=== PATIENT | female | born 1935 | race Caucasian/White ===

== ENCOUNTER 2017-06-04 20:00 | Emergency (ER) | payer MEDICARE ==
[~2017-06-04] VITALS: Ht 170.2 cm; Wt 56.8 kg
[2017-06-04 20:07] VITALS: Ht 170.2 cm; Wt 56.8 kg
[2017-06-04] MEDS ORDERED: ASPI-664 PO (21:05)
[2017-06-04] MEDS ORDERED: ATOR20TA38 PO (21:05)
[2017-06-04] MEDS ORDERED: AMLO5TAB4 PO (21:05)
[2017-06-04] MEDS ORDERED: CALC-42 PO (21:07)
[2017-06-04] MEDS ORDERED: METH5TAB75 PO (21:08)
[2017-06-04] MEDS ORDERED: OMEP20CA16 PO (21:09)
[2017-06-04] MEDS ORDERED: CHOL200073 PO (21:10)
[2017-06-04] MEDS ORDERED: CARV3.1260 PO (21:10)
[2017-06-04] MEDS ORDERED: HIPR1 PO (21:11)
[2017-06-04] MEDS ORDERED: ASC500 PO (21:12)
[2017-06-04] MEDS ORDERED: ACET325T45 PO (21:13)
[2017-06-04] MEDS ORDERED: MAGN400O4 PO (21:14)
--- NOTE | 2017-06-04 21:23 | RADRPT ---
PROCEDURE: XR Hip. CLINICAL INDICATION: Right hip pain. TECHNIQUE: AP and frog lateral views of the right hip were performed. AP pelvis was obtained. COMPARISON: None. FINDINGS: Demineralization limits evaluation of fine osseous detail. No acute fracture or dislocation. Axial joint compartment narrowing in the left hip. The right hip is without significant degenerative leal ges. Enthesopathic changes are likely present at the bilateral greater trochanters. Degenerate court nges lower lumbar spine. Vascular calcifications. The soft tissues are otherwise unremarkable. IMPRESSION: Demineralization, without acute fracture. RPTAT: [facility] Physician Justin Date Time Electronically viewed and signed by Physician Justin on 06/04/2017 21:23 RS/
--- NOTE | 2017-06-04 21:27 | ERD ---
ER Documentation Chief Complaint Date/Time DATE: 06/04/17 TIME: 21:26 Chief Complaint ANKUR RATyler from [facility], ground level fall, c/o rt hip pain HPI Detailed history is unobtainable from patient secondary to her dementia. This is an 82-year-old female who presents to the emergency room for evaluation of a ground-level fall. The patient did state that she had right hip pain prior however she is denying any hip pain at this time. She denies any head or loss of consciousness. ROS All systems reviewed and are negative except as per history of present illness. Medications Home Meds Reported Medications Magnesium Hydroxide* (Milk Of Magnesia*) 400 Mg/5 Ml Oral.susp, 30 ML PO DAILY Y for CONSTIPATION, ML 06/04/17 Acetaminophen* (Acetaminophen*) 325 Mg Tablet, 650 MG PO Q6H Y for MILD PAIN LEVEL 1-3, #30 TAB 06/04/17 Ascorbic Acid (Vitamin C) 500 Mg Tab, 500 MG PO BID, TAB 06/04/17 Methenamine Hippurate* (Hiprex*) 1 Gm Tab, 1 GM PO BID, TAB 06/04/17 Carvedilol* (Carvedilol*) 3.125 Mg Tablet, 3.125 MG PO BID, #60 TAB 06/04/17 Cholecalciferol (Vitamin D3) (VITAMIN D-3) 2,000 Unit Capsule, 2000 UNIT PO DAILY, CAP 06/04/17 Omeprazole* (Omeprazole*) 20 Mg Capsule.dr, 20 MG PO DAILY, #30 CAP 06/04/17 Methimazole* (Tapazole*) 5 Mg Tablet, 5 MG PO DAILY, TAB 06/04/17 Calcium Carbonate-Vitamin D3 (Calcium 500 + Vit D 400 Tablet) 1 Each Tablet, 1 TAB PO DAILY, TAB 06/04/17 Atorvastatin Calcium* (Atorvastatin Calcium*) 20 Mg Tablet, 20 MG PO DAILY, #30 TAB 06/04/17 Aspirin* (Aspirin* EC) 81 Mg Tablet.dr, 81 MG PO DAILY, TAB 06/04/17 Amlodipine Besylate* (Norvasc*) 5 Mg Tablet, 5 MG PO DAILY, TAB 06/04/17 Allergies Allergies: Coded Allergies: Penicillins (Verified Allergy, Unknown, 06/04/17) ibuprofen (Verified Allergy, Unknown, 06/04/17) levofloxacin (Verified Allergy, Unknown, 06/04/17) PMhx/Soc Medical and Surgical Hx: pt denies Medical Hx, pt denies Surgical Hx Hx Alcohol Use: No Hx Substance Use: No Hx Tobacco Use: No Smoking Status: Never smoker Physical Exam Vitals Vital Signs Date Time Temp Pulse Resp B/P Pulse Ox O2 Delivery O2 Flow Rate FiO2 06/04/17 20:07 98.3 73 18 128/64 96 Physical Exam Const: Frail-appearing elderly female no acute distress Head: Atraumatic, no depressed skull fracture Eyes: Normal Conjunctiva ENT: Normal External Ears, Nose and Mouth. Neck: Full range of motion..~ No meningismus. Resp: Clear to auscultation bilaterally Cardio: Regular rate and rhythm, no murmurs Abd: Soft, non tender, non distended. Normal bowel sounds Skin: No petechiae or rashes Back: No midline or flank tenderness Ext: No cyanosis, or edema, no shortening of lower extremity Neur: Awake and alert Psych: Normal Mood and Affect Procedures/MDM X-ray Hip 2V Interpreted by me: Bones: [No fracture] Joints: [No dislocation] Foreign body: [None] This 82-year-old female presents to the emergency room for evaluation after ground-level fall. There was concerned because she was complaining of right hip pain. She had no pain on my examination. This patient did have an x-ray obtained of the hip does not show any acute fractures. The patient will be discharged back to her [facility] at this time Departure Diagnosis: Primary Impression: Hip pain Additional Impression: Fall from ground level Condition: Stable HEIDY DEAN DO Jun 04, 2017 21:27
[2017-06-04] MEDS ORDERED: ACET325T33 PO (21:32)
[2017-06-04] MEDS ORDERED: ACETAMINOPHEN 325 MG TAB PO ONE (22:00)
[2017-06-04 22:20] VITALS: RESP 19
[2017-06-04 23:46] VITALS: BP 112/62
[2017-06-05 00:01] VITALS: PULSE 81
== END 2017-06-05 00:01 | disposition home or self-care (01) ==
LOC: E/R 20:00
DX: S79.911A Unspecified injury of right hip, initial encounter (principal); W18.39XA Other fall on same level, initial encounter; Y92.9 Unspecified place or not applicable; Z79.82 Long term (current) use of aspirin
CPT/HCPCS: 73510

== ENCOUNTER 2018-06-08 23:35 | Observation (INO) | END 2018-06-10 17:40 ==

== ENCOUNTER 2018-09-24 18:18 | Emergency (ER) | END 2018-09-24 23:30 | disposition home or self-care (01) ==

== ENCOUNTER 2019-01-25 08:18 | Emergency (ER) | payer MEDICARE, OTHER ==
[~2019-01-25] VITALS: Ht 157.5 cm; Wt 60.0 kg
[~2019-01-25 08:18] MED LIST: ACET325T45 PO; ASC500 PO; ASPI-817 PO; CALC-686 PO; CHOL200073 PO; MAGN400O19 PO; METH1TAB58 PO; OMEP20CA16 PO
[2019-01-25 08:46] VITALS: Ht 157.5 cm; Wt 60.0 kg
[2019-01-25] MEDS ORDERED: CALC1TAB93 PO (09:18)
--- NOTE | 2019-01-25 09:58 | ERD ---
ER Documentation Chief Complaint Chief Complaint S/P FALL,LAC ON BACK OF THR HEAD.NO KO HPI 83-year-old female presents to the emergency department by paramedics after a fall. Patient is essentially nonverbal with no significant insight and is unable to provide any meaningful history. Patient was in her usual state of health according to the paramedics until this morning at which time she had a unwitnessed fall. She hit the back of her head but is been in her normal neurologic state since that time. I have reviewed the report checker pre-hospital care. Pre-hospital vital signs were reviewed. Pre-hospital diagnostic tests were reviewed. Upon arrival, patient appears asymptomatic and according to the paramedics is in her usual state of health ROS All systems reviewed and are negative except as per history of present illness. Medications Home Meds Reported Medications Calcium Carbonate/Vitamin D3 (OYSTER SHELL 500 MG + VIT D TB) 1 Each Tablet, 1 TAB PO DAILY, TAB 01/25/19 Methenamine Hippurate* (Hiprex*) 1 Gm Tab, 1 GM PO BID, TAB 09/24/18 Ascorbic Acid (Vitamin C) 500 Mg Tab, 500 MG PO BID, TAB 09/24/18 Cholecalciferol (Vitamin D3) (VITAMIN D-3) 2,000 Unit Capsule, 2000 UNIT PO DAILY, CAP 09/24/18 Omeprazole* (Omeprazole*) 20 Mg Capsule.dr, 20 MG PO DAILY, #30 CAP 09/24/18 Aspirin* (Aspirin* EC) 81 Mg Tablet.dr, 81 MG PO DAILY, TAB 09/24/18 Acetaminophen* (Acetaminophen*) 325 Mg Tablet, 650 MG PO Q6H PRN for MILD PAIN(1-3)OR ELEVATED TEMP, #30 TAB 09/24/18 Discontinued Reported Medications Calcium Carbonate/Vitamin D3 (Calcium 500 mg Chewable Tablet) 1 Each Tab.chew, 1 EACH PO DAILY, TAB.CHEW 09/24/18 Magnesium Hydroxide* (Milk Of Magnesia*) 400 Mg/5 Ml Oral.susp, 30 ML PO Q24H PRN for NEEDED, ML 06/08/18 Allergies Allergies: Coded Allergies: Penicillins (Verified Allergy, Unknown, 01/25/19) ibuprofen (Verified Allergy, Unknown, 01/25/19) levofloxacin (Verified Allergy, Unknown, 01/25/19) PMhx/Soc History of Surgery: No Anesthesia Reaction: No (UNKNOWN) Hx Neurological Disorder: Yes (DEMENTIA) Hx Respiratory Disorders: No Hx Cardiac Disorders: No Hx Psychiatric Problems: Yes (ANXIETY; DEMENTIA) Hx Miscellaneous Medical Probl: No Hx Alcohol Use: No Hx Substance Use: No Hx Tobacco Use: No Smoking Status: Never smoker Physical Exam Vitals Vital Signs Date Temp Pulse Resp B/P (MAP) Pulse Ox O2 O2 Flow FiO2 Time Delivery Rate 01/25/19 98.4 61 18 130/87 100 08:46 (101) Physical Exam General: Frail, elderly patient in no distress HEENT: Face is stable. Patient has an occipital laceration. This appears well approximated with no active bleeding. It is superficial. There is no foreign body. No signs of skull fracture or basilar skull trauma. Neck: Full range of motion without discomfort or neurologic symptoms, no midline cervical spine tenderness, step-off, or evidence of significant trauma CV: Regular rate, rhythm, no murmurs appreciated Lungs: Clear to auscultation bilaterally with no chest wall trauma appreciated, chest wall stable with no crepitus Abdomen: Soft, atraumatic and non-tender in all 4 quadrants Extremities: Atraumatic with no bony tenderness or deformity in all 4 e xtremities, full range of motion throughout all joints; pelvis stable to both AP and lateral compression Back: No thoracic or lumbar midline tenderness, no step-off or evidence of significant trauma Neurologic: Awake, alert and at her normal baseline, pupils equal, round and reactive to light, face symmetric, tongue midline, moving all extremities with equal and normal strength, sensory exam grossly non-focal Result Diagram: 01/25/19 0852 01/25/19 0852 Results 24 hrs Laboratory Tests Test 01/25/19 08:52 White Blood Count 5.8 10^3/ul Red Blood Count 4.38 10^6/ul Hemoglobin 13.4 g/dl Hematocrit 41.6 % Mean Corpuscular Volume 95.0 fl Mean Corpuscular Hemoglobin 30.6 pg Mean Corpuscular Hemoglobin Concent 32.2 g/dl Red Cell Distribution Width 12.6 % Platelet Count 281 10^3/UL Mean Platelet Volume 10.0 fl Immature Granulocytes % 0.300 % Neutrophils % 71.2 % Lymphocytes % 17.9 % Monocytes % 9.0 % Eosinophils % 0.7 % Basophils % 0.9 % Nucleated Red Blood Cells % 0.0 /100WBC Immature Granulocytes # 0.020 10^3/ul Neutrophils # 4.1 10^3/ul Lymphocytes # 1.0 10^3/ul Monocytes # 0.5 10^3/ul Eosinophils # 0.0 10^3/ul Basophils # 0.1 10^3/ul Nucleated Red Blood Cells # 0.0 10^3/ul Sodium Level 146 mmol/L Potassium Level 4.2 mmol/L Chloride Level 105 mmol/L Carbon Dioxide Level 27 mmol/L Anion Gap 14 Blood Urea Nitrogen 17 mg/dl Creatinine 0.57 mg/dl Est Glomerular Filtrat Rate mL/min mL/min Glucose Level 71 mg/dl Calcium Level 9.6 mg/dl Procedures/MDM Patient was taken to a room, seen and evaluated. Comfort measures were initiated. Diagnostic tests were ordered and reviewed. 3 LEAD RHYTHM STRIP: Normal sinus rhythm without ectopy RADIOLOGY: Reviewed with the radiologist REEVALUATION: 0955: Diagnostic tests were appreciated. Patient remained neurologically normal and at baseline. MEDICAL DECISION MAKING: Patient presents after a fall. From a trauma standpoint, patient has been evaluated for significant injury. Patient has evidence of what appears to be minor head injury, with no evidence of intracranial injury based on imaging. Her neurologic exam is at baseline. 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 I have reviewed medications and evaluated the patient for infection, electrolyte concerns, ischemia and other acute medical concerns. Patient has no obvious decompensated medical illness at this time based on lab tests and diagnostic evaluation From a social standpoint, the patient has been evaluated for safety. Patient seems to be at her functional baseline and an appropriate safe discharge to her care facility. Departure Diagnosis: Primary Impression: Head injury Additional Impression: Fall Patient Instructions: Fall Prevention Additional Instructions: Fall precautions OVIDIO MANCIA Jan 25, 2019 09:58
[2019-01-25 11:52] VITALS: BP 122/76; PULSE 87; RESP 18
== END 2019-01-25 11:53 | disposition home or self-care (01) ==
LOC: E/R 08:18
DX: S09.90XA Unspecified injury of head, initial encounter (principal); R40.2142 Coma scale, eyes open, spontaneous, at arrival to emergency department; R40.2242 Coma scale, best verbal response, confused conversation, at arrival to emergency department; R40.2362 Coma scale, best motor response, obeys commands, at arrival to emergency department; R51 Headache; R06.02 Shortness of breath; W22.8XXA Striking against or struck by other objects, initial encounter; Y92.9 Unspecified place or not applicable; Z79.82 Long term (current) use of aspirin
CPT/HCPCS: 70450; 71045; 80048; 85025